=== PATIENT | female | born 1990 | race Caucasian/White ===

== ENCOUNTER 2021-10-29 05:05 | Inpatient (IN) | payer OTHER ==
[~2021-10-29] VITALS: Ht 162.6 cm; Wt 81.2 kg
[2021-10-29 05:49] LABS: HEMOGLOBIN 11.5 gm/dl (12.3-15.3); RED BLOOD COUNT 3.8 M/UL (4.00-5.10)
[2021-10-29] MEDS ORDERED: COLACE100 MG PO (06:55)
[2021-10-29] MEDS ORDERED: VALTREX500 MG PO (06:55)
[2021-10-29] MEDS ORDERED: IRON325 M1 PO (06:56)
[2021-10-29] MEDS ORDERED: PRENATAL + DHA1 EACH PO (06:57)
[2021-10-29] MEDS ORDERED: XYZAL5 MG PO (06:58)
[2021-10-29] MEDS ORDERED: OMEPRAZOLE10 MG PO (06:59)
[2021-10-29] MEDS ORDERED: IBUPROFEN800 MG PO (15:27)
[2021-10-29] MEDS ORDERED: COLACE 100MG C100 MG PO (15:27)
[2021-10-30 05:56] LABS: HEMOGLOBIN 9.2 gm/dl (12.3-15.3)
== END 2021-10-31 17:46 | disposition home or self-care (01) | DRG 806 ==
LOC: OB 05:05
PROVIDERS: ADMIT Obstetrics & Gynecology
PROC: 10E0XZZ Delivery of Products of Conception, External Approach (ICD-10-PCS; principal; 2021-10-29)
PROC: 0KQM0ZZ Repair Perineum Muscle, Open Approach (ICD-10-PCS; 2021-10-29)
PROC: 0UH97HZ Insertion of Contraceptive Device into Uterus, Via Natural or Artificial Opening (ICD-10-PCS; 2021-10-29)
PROC: 3E033VJ Introduction of Other Hormone into Peripheral Vein, Percutaneous Approach (ICD-10-PCS; 2021-10-29)
PROC: 4A1H7CZ Monitoring of Products of Conception, Cardiac Rate, Via Natural or Artificial Opening (ICD-10-PCS; 2021-10-29)
PROC: 10H073Z Insertion of Monitoring Electrode into Products of Conception, Via Natural or Artificial Opening (ICD-10-PCS; 2021-10-29)
PROC: 10907ZC Drainage of Amniotic Fluid, Therapeutic from Products of Conception, Via Natural or Artificial Opening (ICD-10-PCS; 2021-10-29)
DX: O99.02 Anemia complicating childbirth (principal); D62 Acute posthemorrhagic anemia; Z37.0 Single live birth; O98.52 Other viral diseases complicating childbirth; B00.9 Herpesviral infection, unspecified; O70.1 Second degree perineal laceration during delivery; O99.334 Smoking (tobacco) complicating childbirth; Z3A.39 39 weeks gestation of pregnancy; Z98.890 Other specified postprocedural states; Z28.310 Unvaccinated for COVID-19; Z87.891 Personal history of nicotine dependence; Z82.49 Family history of ischemic heart disease and other diseases of the circulatory system; Z83.3 Family history of diabetes mellitus
CPT/HCPCS: 36415; 81001; 82800; 85014; 85018; 85025; J1885; J2210; J2590